=== PATIENT | male | born 1990 | race Two or more races ===

== ENCOUNTER 2022-05-10 12:24 | Emergency (ER) | payer MEDICAID, OTHER ==
[~2022-05-10] VITALS: Ht 180.3 cm; Wt 83.5 kg
[2022-05-10 12:59] VITALS: BP 140/110
[2022-05-10 15:07] LABS: Calcium 9.2 mg/dL (8.5-10.1)
[2022-05-10 15:13] LABS: BUN/Creatinine Ratio 6.5; Bilirubin, Total 1.5 mg/dL (0.2-1.0); Total Protein 8.1 g/dL (6.4-8.2)
[2022-05-10 15:32] LABS: Basophils # (auto) 0 10 ^3/uL (0-0.2); Basophils % (auto) 0.6 % (0.0-2.0); Eosinophils # (auto) 0 10 ^3/uL (0-0.8); Hematocrit 48.6 % (41.0-53.0); Hemoglobin 16.6 g/dL (13.5-17.5); Lymphocytes # (auto) 1.5 10 ^3/uL (0.4-5.4); Lymphocytes % (auto) 22.8 % (10.0-50.0); Mean Corpuscular Hemoglobin 32.1 pg (28.0-32.0); Mean Corpuscular Hgb Conc. 34.2 g/dL (32.0-36.0); Mean Corpuscular Volume 93.7 fL (80.0-100.0); Monocytes # (auto) 1.1 10 ^3/uL (0-1.3); Monocytes % (auto) 16.8 % (0.0-12.0); Neutrophils % (auto) 59.8 % (37.0-80.0); Red Blood Cells 5.19 10^6/uL (4.5-5.90); Red Cell Distribution Width 13.6 % (11.8-14.3); White Blood Cell 6.6 10^3/uL (4.4-10.8)
[2022-05-11 08:30] LABS: Hepatitis B Surface Antibody Positive (Negative)
== END 2022-05-10 16:26 ==
LOC: ER 12:24
DX: S60.811A Abrasion of right wrist, initial encounter (principal); X58.XXXA Exposure to other specified factors, initial encounter; Y93.89 Activity, other specified; Y92.89 Other specified places as the place of occurrence of the external cause; Y99.8 Other external cause status
CPT/HCPCS: 36415; 80053; 85025; 86703; 86706; 86803; 87340